=== PATIENT | female | born 1985 | race Caucasian/White ===

== ENCOUNTER 2016-12-18 08:39 | Emergency (ER) | payer OTHER ==
[2016-12-18 10:51] LABS: HEMOGLOBIN 13.3 gm/dl (12.3-15.3); RED BLOOD COUNT 4.02 M/UL (4.00-5.10); WHITE BLOOD COUNT 7.6 K/UL (4.5-11.0)
[2016-12-18 11:11] LABS: BUN/CREATININE RATIO 20 (0-10)
== END 2016-12-18 15:10 | disposition home or self-care (01) ==
LOC: ER1 08:39
PROVIDERS: Physician Assistant
DX: R10.31 Right lower quadrant pain (principal); R10.11 Right upper quadrant pain; R11.0 Nausea
CPT/HCPCS: 80053; 81001; 84703; 85025; 96374; 96375; 99284; J2270; J2405; J7050; Q9962

== ENCOUNTER → 2021-04-06 | Outpatient (CLI) | payer OTHER ==
[~2021-04-06] MED LIST: PERCOCET 5/325 T1 EA PO; PHENERGAN 25 MG25 M1 PO; TORADOL 10 MG T10 MG PO; ZOFRAN ODT 4 MG4 MG GT
== END ==
LOC: RAD 13:01
DX: R30.0 Dysuria (principal); N20.0 Calculus of kidney
CPT/HCPCS: 74018